=== PATIENT | female | born 1990 | race Caucasian/White ===

== ENCOUNTER 2022-02-18 08:29 | Outpatient (CLI) | payer OTHER, SELFPAY ==
--- NOTE | 2022-02-18 08:45 | CRLHL7_ITS ---
For Patients: As a result of the Cures Act, medical imaging exams and procedure reports are released immediately into your electronic medical record. You may view this report before your referring provider. If you have questions, please contact your health care provider. INDICATION: First trimester scan, establish dates. COMPARISON: None. TECHNIQUE: Real-time don-scale imaging of the pelvis was performed. FINDINGS: Sonographic imaging demonstrates a single living intrauterine gestation. The embryo demonstrates a regular cardiac rate measuring 176 beats per minute. The embryo`s crown-rump length measurement of 3.0 cm corresponds to a gestational age of 9 weeks 6 days with a sonographic due date of 09/17/2022. There is a normal-appearing yolk sac. There are no gross abnormalities noted within the embryo at this early state of development. The gestational sac has a normal appearance. There is a 1.7 x 0.2 x 0.6 cm perigestational hemorrhage. The amount of fluid within the sac appears appropriate for gestational age. The cervix is closed. The myometrium appears normal. The ovaries are of normal size. Corpus luteal cyst right ovary measuring 2.0 x 1.9 x 1.6 cm. There are no suspicious fluid collections noted in the cul-de-sac. IMPRESSION: Single living intrauterine with sonographic gestational age 9 weeks 6 days and sonographic due date of 09/17/2022. Subchorionic hemorrhage measuring 1.7 x 0.2 x 0.6 cm. Dictated by Royce Sahni MD @ 02/18/2022 10:18:21 AM (Electronically Signed)
== END 2022-02-18 08:30 | disposition home or self-care (01) ==
LOC: US 08:32
PROVIDERS: Visit Provider Physician Assistant
DX: Z34.91 Encounter for supervision of normal pregnancy, unspecified, first trimester (principal); O20.9 Hemorrhage in early pregnancy, unspecified; Z3A.09 9 weeks gestation of pregnancy
CPT/HCPCS: 76817

== ENCOUNTER 2022-02-18 09:47 | Outpatient (CLI) | payer OTHER, SELFPAY ==
[2022-02-18 12:27] LABS: Hepatitis B Surface Antigen* Negative (Negative)
[2022-02-18 12:43] LABS: HIV 1/2/P24 Combo Screen* Negative (Negative)
[2022-02-18 12:45] LABS: Hepatitis C Virus Antibody* Negative (Negative)
[2022-02-18 13:26] LABS: Chlamydia DNA Amplified* NOT DETECTED (No Detected); GC DNA Amplified* NOT DETECTED (No Detected)
[2022-02-22 08:16] LABS: Rapid Plasma Reagin (RPR) Non Reactive (Non Reactive)
== END 2022-02-18 09:48 | disposition home or self-care (01) ==
PROVIDERS: Visit Provider Physician Assistant
DX: Z34.90 Encounter for supervision of normal pregnancy, unspecified, unspecified trimester (principal)
CPT/HCPCS: 76817; 86592; 86703; 86762; 86803; 86850; 86900; 86901; 87086; 87186; 87340; 87491; 87591

== ENCOUNTER 2022-03-15 10:31 | Outpatient (CLI) | payer OTHER, SELFPAY | END 2022-03-15 10:32 | disposition home or self-care (01) | LOC: LKVREF 10:33 | PROVIDERS: Visit Provider Physician Assistant | DX: Z34.91 Encounter for supervision of normal pregnancy, unspecified, first trimester (principal); Z3A.13 13 weeks gestation of pregnancy | CPT/HCPCS: 87086; 87186 ==

== ENCOUNTER 2022-04-12 09:57 | Outpatient (CLI) | payer OTHER, SELFPAY | END 2022-04-12 09:58 | disposition home or self-care (01) | LOC: LKVREF 09:59 | PROVIDERS: Visit Provider Physician Assistant | DX: O99.891 Other specified diseases and conditions complicating pregnancy (principal); R82.71 Bacteriuria | CPT/HCPCS: 87086; 87186 ==

== ENCOUNTER 2022-05-03 12:59 | Outpatient (CLI) | payer OTHER, SELFPAY ==
--- NOTE | 2022-05-03 13:00 | CRLHL7_ITS ---
For Patients: As a result of the Century Cures Act, medical imaging exams and procedure reports are released immediately into your electronic medical record. You may view this report before your referring provider. If you have questions, please contact your health care provider. INDICATION: Evaluate anatomy. COMPARISON: 02/18/2022 TECHNIQUE: Real time don scale imaging of the fetus was performed as well as color Doppler analysis of the umbilical vessels. FINDINGS: Sonographic imaging demonstrates a single living intrauterine gestation. Fetus demonstrates a regular cardiac rate of 139 beats per minute. Fetus has a vertex position. The placenta lies anteriorly without evidence of placenta previa. The edge of the placenta is located 5.1 cm from the internal cervical os. Amniotic fluid volume appears normal. Single deepest vertical pocket: 5.2 cm. The cervix is closed and measures 4.0 cm in length. The composite ultrasound gestational age is calculated at 20 weeks 5 days with an estimated sonographic due date of 09/15/2022. The estimated weight is 388 grams which lies at the 91st %. The following biometric measurements were obtained: Biparietal diameter: 4.8 cm/20 weeks 3 days 69th% Head circumference: 18.1 cm/20 weeks 4 days 68th% Abdominal circumference: 16.4 cm/21 weeks 3 days 86th% Femur length: 3.4 cm/20 weeks 3 days 61st% The HC/AC ratio measures: 1.11 range (1.06-1.25) On anatomic survey, there is a normal appearance of the cerebral ventricles, cavum septi pellucidi, cisterna magna and cerebellum. The nose, lips, and facial profile appear normal. The cervical, thoracic and lumbar spine are well visualized and appear normal. There is a normal four-chamber heart view and the left and right ventricular outflow tracts appear normal. The diaphragm appears normal. Debris appears to be present within the stomach, image 45/71. The kidneys and bladder also appear normal. There is a normal three-vessel cord and cord insertion site. The four extremities appear normal. IMPRESSION: Concordance of clinical and sonographic dating. Debris in the stomach. Level 2 ultrasound should be considered. Remainder of the anatomic survey is normal. Dictated by Royce Sahni MD @ 05/03/2022 4:01:20 PM (Electronically Signed)
== END 2022-05-03 13:00 | disposition home or self-care (01) ==
LOC: US 13:00
PROVIDERS: Visit Provider Advanced Practice Midwife
DX: Z34.92 Encounter for supervision of normal pregnancy, unspecified, second trimester (principal); Z3A.20 20 weeks gestation of pregnancy
CPT/HCPCS: 76805

== ENCOUNTER 2022-05-05 14:14 | Outpatient (CLI) | payer OTHER, SELFPAY | END 2022-05-05 14:15 | disposition home or self-care (01) | LOC: US 14:15 | PROVIDERS: Visit Provider Pediatrics Neonatal-Perinatal Medicine | DX: Z34.82 Encounter for supervision of other normal pregnancy, second trimester (principal); Z3A.20 20 weeks gestation of pregnancy | CPT/HCPCS: 76816 ==

== ENCOUNTER 2022-06-30 08:30 | Outpatient (CLI) | payer OTHER, SELFPAY ==
[2022-07-02 01:42] LABS: Rapid Plasma Reagin (RPR) Non Reactive (Non Reactive)
== END 2022-06-30 08:31 | disposition home or self-care (01) ==
LOC: LKVREF 08:30
PROVIDERS: Visit Provider Advanced Practice Midwife
DX: Z34.93 Encounter for supervision of normal pregnancy, unspecified, third trimester (principal); Z3A.28 28 weeks gestation of pregnancy
CPT/HCPCS: 86592

== ENCOUNTER 2022-07-05 10:11 | Outpatient (CLI) | payer OTHER, SELFPAY ==
[2022-07-05 10:19] LABS: Glucose Fasting Check 76 mg/dl (60-115)
[2022-07-05 14:39] LABS: Glucose GTT-Gestational 3 Hr 139 mg/dl (70-140)
[2022-07-05 14:39] LABS: Glucose 1 Hour Gest 179 mg/dl (70-180)
== END 2022-07-05 10:12 | disposition home or self-care (01) ==
LOC: NFLDREF 10:12
PROVIDERS: Visit Provider Advanced Practice Midwife
DX: Z34.83 Encounter for supervision of other normal pregnancy, third trimester (principal); Z3A.30 30 weeks gestation of pregnancy
CPT/HCPCS: 82951; 82952

== ENCOUNTER 2022-08-25 09:12 | Outpatient (CLI) | payer OTHER, SELFPAY ==
--- NOTE | 2022-08-25 09:15 | CRLHL7_ITS ---
For Patients: As a result of the Century Cures Act, medical imaging exams and procedure reports are released immediately into your electronic medical record. You may view this report before your referring provider. If you have questions, please contact your health care provider. INDICATION: DESIRES , GROWTH. COMPARISON: 05/05/2022 TECHNIQUE: Real time don scale imaging of the fetus was performed. FINDINGS: Sonographic imaging demonstrates a single living intrauterine gestation. Fetus demonstrates a regular cardiac rate of 144 beats per minute. Fetus has a vertex position. The placenta lies anteriorly. Amniotic fluid volume appears normal and there is a single deepest vertical pocket: 7.4 cm. The estimated weight is 3473gm which lies at the 95th %. On the prior OB ultrasound exam dated 05/03/2022 the estimated weight was at the 91st%. The biometric indices all lie within normal range. The HC/AC ratio measures range (-). BPD 86th percentile. HC 46th percentile. AC greater than 97th percentile. FL 70th percentile. IMPRESSION: Sonographic gestational age 37 weeks 6 days and sonographic due date 09/09/2022. Sonographic age 11 days ahead of the clinical age. Estimated weight 95th percentile. Abdominal circumference greater than 97th percentile. Dictated by Royce Sahni MD @ 08/25/2022 11:09:49 AM (Electronically Signed)
== END 2022-08-25 09:13 | disposition home or self-care (01) ==
LOC: US 09:13
PROVIDERS: Visit Provider Advanced Practice Midwife
DX: O34.219 Maternal care for unspecified type scar from previous cesarean delivery (principal); Z3A.37 37 weeks gestation of pregnancy
CPT/HCPCS: 76816; 87081; 87653

== ENCOUNTER 2022-09-16 20:12 | Outpatient (CLI) | payer OTHER, SELFPAY ==
[2022-09-16 20:31] VITALS: BP 135/82; PULSE 86
--- NOTE | 2022-09-16 22:41 | PC.OBNST ---
NST Note NST Note Start: 09/16/22 20:21 Freq: ONCE Status: Active Protocol: Document 09/16/22 22:39 ABP (Rec: 09/16/22 22:40 ABP [id number]) NST Note 2 Para (# of births) 1 EDC 09/20/22 Gestational Age In Weeks & Days 39 Weeks & 3 Days Patient Presented with Complaint(s) of Contractions/cramping Reactive Yes Appropriate for Gestational Age Yes MARAIN Chavez, MARIAN Date 09/16/22 Reactive Yes Appropriate for Gestational Age Yes MARIAN Stafford, MARIAN Date 09/16/22 OB NST charge Yes Complete NST Note via Write Note Yes The provider's electronic signature indicates the NST is reactive/appropriate for gestational age. *Note to provider: If an addendum is required, open the patient's chart and click on the note under the Nurse/Allied Health tab.
== END 2022-09-16 22:15 | disposition home or self-care (01) ==
LOC: OB OUT 20:13 → OB 20:16
PROVIDERS: Visit Provider Advanced Practice Midwife
DX: O47.1 False labor at or after 37 completed weeks of gestation (principal); Z3A.39 39 weeks gestation of pregnancy
CPT/HCPCS: 59025; 99213

== ENCOUNTER 2022-09-17 21:34 | Inpatient (IN) | payer OTHER, SELFPAY ==
[2022-09-17] MEDS: LACTATED RINGERS 1000 ML 1,000 ML 999 ML IV (21:55)
[2022-09-17] MEDS: miSOPROStoL 800 MCG/4 TABLET PR (22:40)
[2022-09-17] MEDS: OXYTOCIN 30 unit/500 ML in NS 30 UNIT/500 ML BAG 300 UNIT IVPB (22:46)
[2022-09-17 22:47] VITALS: BP 142/79; PULSE 125
[2022-09-17 23:00] VITALS: BP 133/69; PULSE 110; TEMP 36.8
[2022-09-17] MEDS: METHYLERGONOVINE MALEATE 0.2 MG/ML INJ IM (23:00)
[2022-09-17] MEDS: LIDOCAINE 1 % PF 30 ML INJECTION (23:00)
[2022-09-17] MEDS: fentaNYL 100 MCG/2 ML inj IVP (23:10)
[2022-09-17 23:15] VITALS: BP 88/45; PULSE 100
[2022-09-17 23:30] VITALS: BP 97/53; PULSE 90
--- NOTE | 2022-09-17 23:44 | PM.OBCN1 ---
OB - CN: HPI Date of Consult Date Seen: 09/17/22 Patient: [facility] Patient Consult date: 09/17/22 Requesting Physician: Madhuri Carolina CNM Primary Care Provider: Not a Local Provider Consult Narrative Narrative: The patient is a 32 year old G 2 now P 2-0-0-2 woman who has just had a successful spontaneous vaginal delivery/ at 39 weeks, 4 days gestation. I was called by Madhuri Carolina CNM to evaluate her perineal laceration. History History 2 Elective abortions Para 2 Spontaneous abortions Hx # Term Pregnancies Ectopic pregnancies Hx # Pregnancies Multiple births Number of Living Children 1 Past Pregnancies Del. Date GA/Weeks Outcome Route wt Inf Gender Labor Lgth Anesthesia Location Provider Compli 02/04/20 40 live - full term low transverse 8 lb 10 oz Male Labs OB Labs: Lab Assessment Start: 09/17/22 21:45 Freq: ONCE Status: Active Protocol: PC.OBGBS Activity Type Activity Date Activity User E-sign Co-sign Detail Recorded Client Recorded Date Recorded By Document 09/17/22 23:08 WEBERB [id number] 09/17/22 23:08 PHILL DAMANUEL 09/17/22 23:08 Lab Assessment GBS Negative PFSH PFSH Medical History (Updated 09/17/22 @ 23:49 by Julia Parker MD) No pertinent past medical history ?Z78.9 - Other specified health status (ICD-10) Surgical History History of ?Z98.891 - History of uterine scar from previous surgery (ICD-10) Social History Narrative: . Works in [employer]. Nonsmoker. Smoking Status: Never smoker Little interest or pleasure in doing things: several days Feeling down, depressed, or hopeless: several days Meds Home Medications and Allergies Home Medications Medication Instructions Recorded Confirmed Type docosahexaenoic acid 200 mg mg PO DAILY 02/18/22 09/15/22 History capsule ( DHA) doxylamine succinate 25 mg tablet 25 mg PO QHS PRN 03/15/22 09/15/22 History (Unisom (doxylamine)) Allergies Allergy/AdvReac Type Severity Reaction Status Date / Time No Known Allergies Allergy Unknown Unknown Verified 09/15/22 08:55 OB - H&P: Exam Physical Exam: Vital signs: Pulse BP 90 97/53 L 09/17/22 23:30 09/17/22 23:30 Narrative: Perineal exam reveals a left sulcal laceration that extends in to a second-degree perineal laceration. Rectal exam confirms intact anal sphincter. The perineal body is completely disrupted. She is bleeding rather heavily from the left sulcal laceration, this subsequently found to have small separation of the left anterior labium minora that is bleeding. Procedure note: Repair perineal lacerations The perineum was infiltrated with 10 mL of 1% lidocaine. The left sulcal laceration was 1st repaired in a running, locked fashion with 2 Vicryl. Next, the completely disrupted perineal body was rebuilt with a series of interrupted sutures of first 2-0, then 3-0 Vicryl. The perineal skin is reapproximated with 3-0 Vicryl. After closure of the perineal laceration, bleeding persists. It is then that the bleeding of the anterior left labia minora is noted. This was closed with a single [id number] stitch of 3-0 Vicryl. Hemostasis improves. Throughout the procedure, heavy bleeding was noted. QBL is process. Patient was treated with uterine massage, Pitocin, 800 mcg of rectal misoprostol, and a single dose of Methergine. OB - CN: A/P Assessment and Plan (1) Perineal laceration during delivery: Status: Acute Assessment and Plan: Repaired as detailed above. I believe the majority of the bleeding was from the laceration. (2) hemorrhage: Status: Acute Assessment and Plan: QBL pending. I will be quick to treat with TXA and move to OR for further evaluation should heavy bleeding recur. She is unmedicated and tolerates exam with difficulty.
[2022-09-17 23:54] VITALS: BP 240/158
[2022-09-17 23:59] VITALS: BP 117/72; PULSE 106
[2022-09-18] VITALS (7 sets, daily range): BP systolic 107–124; BP diastolic 60–80; PULSE 76–105; RESP 18–22; TEMP 36.7–37.2; O2SAT 95–98; BMI 32.8
[2022-09-18 00:26] LABS: Basophils Percent Auto 0.2 % (0.0-3.0); Eosinophils Percent Auto 1.1 % (0.0-7.0); Hematocrit 40.6 % (33.0-51.0); Hemoglobin* 13.9 gm/dL (12.0-16.0); Immature Granulocytes Pct Auto 0.4 %; Lymphocytes Percent Auto 22.9 % (20-44); Mean Corpuscular HGB Conc 34 gm/dL (32-36); Mean Corpuscular Hemoglobin 31 pg (26-34); Mean Corpuscular Volume 89 fL (80-100); Monocytes Percent Auto 8.4 % (0.0-11.0); Platelet Count* 177 K/uL (140-440); RDW Coefficient of Variation % 13.6 % (11.5-15.5); Red Blood Count 4.56 m/uL (4.00-5.20); White Blood Count* 12.03 K/uL (4.50-11.00)
[2022-09-18 00:30] LABS: Slide Review Reflex No
--- NOTE | 2022-09-18 00:59 | W.PM.LDBA ---
Subjective History of Present Illness Narrative: Patient is being admitted to Labor and Delivery for IOL for active labor. She is a 32 year old at weeks gestation. Her full history and physical was dictated by Primo Tony CNM on 09/01/22. Please see this for details. 1. History of , patient reported secondary to OP position, failed manual rotation, failed vacuum (uncertain station) Desires Operative report:scanned consent: signed on 08/25/2022 Growth ultrasound at 36 weeks:? EFW at 95%tile and AC >97%tile 2. Asymptomatic bacteriuria, 40-50,000 E coli Elected to treat, cephalexin Treatment of cure UC next visit: UC 03/15/22: <100,000 E coli treated with nitrofurantoin Cathy of cure UC 04/12: +e coli: tx w/ amox-clauv x7days. retest in 4 weeks: 05/03 negative consider prophylaxis w/ macrobid 3. Rubella nonimmune MMR 4. Anatomy scan normal except debris in stomach noted - recommendation for Level II follow up. Follow up still noted debris but not of concern. 5. Failed 1hr GTT 159 3hr GTT: 82, 179, 155, 139 (barely passed 1, 2 & 3 hours) - GDM testing supplies ordered, pt will keep food and blood sugar log for 2 weeks. 1 week of glucose monitoring: all WNL, no need to continue Nutrition referral offered: declined OB - Problem Based A/P Additional Plan (1) Active labor at term: Status: Acute (2) History of section, low transverse: Status: Acute Plan ASSESSMENT:? at 39.4 weeks gestation? GBS negative? Uncomplicated ? Trial of labor after ? ?? PLAN:? 1. Candidate for analgesia of choice. Planning epidural.? 5. Good candidate for TOLAC. Notify OR team and MD. 6. Anticipate ? 7. Expectant management at this time.? 8. Place IV for epidural and continuous monitoring at this time. Delivery/Labor/Induction Plan Plan: expectant management OB Result Labs Blood Type: B (+) positive GBS Status: negative OB Exam Physical Exam Vital signs: Pulse BP 84 118/64 09/18/22 00:45 09/18/22 00:45 Narrative: Vitals per EMR? Psychiatric:? Alert and oriented x3? HEENT:? Normocephalic, atraumatic? Neck:? Supple without adenopathy or thyromegaly? Lungs:? Clear to auscultation bilaterally? Heart:? Regular rate and rhythm, no murmur, rub or gallop? Abdomen:? Soft, nontender, and gravid? Extremities:? No edema or erythema? Pelvic:? SVE: 6cm/bulging bag Membrane status:? intact? presentation:? vertex? FHT:? Moderate Variability.? Positive Accels.? No Decels. Baseline 120.? [place]:? Ctx Q1.5-3min? Detailed Labor and Delivery Exam Patient Gravid: Yes Dilation (cm): 6 Contraction intensity: Strong/Firm Fetus (Single) Amniotic Membrane Status: intact Heart Rate Baseline: 120 Monitor Accelerations: Present Monitor Decelerations: None Care Home Variability: Moderate (6-25)
[2022-09-18] MEDS: lidocaine HCL 2 % JELLY (TOP) STERILE 6 ML TOPICAL (02:45)
[2022-09-18] MEDS: IBUPROFEN 600 MG TABLET PO ×4 (02:52→22:59)
--- NOTE | 2022-09-18 03:22 | W.PM.OBVAGDE ---
OB Procedure Vag Delivery Mother Details Mother Details: The patient is a 32 year-old, 2, Para 2, admitted on 09/17/22 at 39.4Days gestation. Erika present in active labor and progressed quickly to complete. She had requested an epidural but there was not enough time after admission. She felt a strong urge to push and pushed well after some direction. : 2 Para: 2 Weeks Gestation: 39.4 Admission Date: 09/17/22 Additional Details Amniotic Membrane Status: intact Amniotic Membrane Rupture Date: 09/17/22 Amniotic Membrane Rupture Time: 22:10 Amniotic Membrane Fluid Description: Clear Analgesia/Anesthesia Type: None Waterbirth: No Pitcoin: Yes (after delivery only) Intrapartal Events: Excessive Bleeding and Precipitous Labor <3 Hrs Labor Onset: 20:30 Complete: 22:11 Pushin:11 Heart: heart tones during second stage were difficult to trace due to maternal positions and intolerance while pushing. Good variability heard. Decelerations to the 90's heard. Delivery Details Delivery Date: 09/17/22 Delivery Time: 22:39 Gender: Female Infant Viability: Alive; Heart Rate Present Position at Delivery: OA Delivery Details: Delivered over intact perineum via spontaneous vaginal delivery. was placed on maternal abdomen.? Cord was clamped and cut after about a 30 second delay when baby was brought to the warmer for poor tone and lack of crying effort. Baby began to cry and come around shortly after getting to the warmer. Nose and mouth were bulb suctioned.? Infant weight 9lb 7oz. 1 Minute Interval Total Score: 8 5 Minute Interval Total Score: 9 Additional Details Shoulder Dystocia: Yes (50 seconds) Placenta Delivery Time: 22:44 Placental Delivery Description: Spontaneous Delivery repair: Vicryl (repaired by Dr. Parker) Procedure Done: Global Blood Loss: 700 Laceration: Perineal - 2nd Degree (deep perineal, sulcal, and labial lacerations) Episiotomy Description: None Blood Loss Measurement Type: QBL Bakri Used: No Sponge/Need Count Correct: Yes Cord Vessel Description: 3 Vessels, Nuchal Cord (x2), Tight and Delivered through Event Summary Status: Mother and were stable after delivery. Disposition: floor
[2022-09-18] MEDS: DOCUSATE SODIUM 100 MG CAPSULE PO (07:39)
[2022-09-18] MEDS: ACETAMINOPHEN 500 MG TABLET 1000 MG PO ×3 (07:41→20:40)
--- NOTE | 2022-09-18 08:22 | PM.OBPNVD1 ---
OB - PN:Subj Subjective Time Seen by Provider: : Date Seen: 09/18/22 Interval history: Erika is a 32 y.o. who was admitted to L & D for active labor, TOLAC. She had a successful that was followed by a deep sulcus laceration and a PP hemorrhage. Patient comments OB post-: no complaints, pain well controlled, tolerating diet and flatus present status: doing well Narrative: The patient feels ok overall. Increased discomfort and soreness, more than she expected compared to her previous . The pain is somewhat controlled with current medications. Encouraged to have a dose of ibuprofen, which will help with the discomfort and the cramping. Also encouraged to relax in the tub when able. She has no new complaints. She is breast feeding and reports things are going well.? the patient has done well.? Vitals have been stable.? She has remained afebrile.? Has a good appetite, is tolerating a general diet. She has a sears catheter in since she was dizzy multiple times last night when getting up.? She is passing gas and has not had a bowel movement.? She is ambulating and has been resting after being dizzy with ambulation. She was encouraged to eat and stay well hydrated.? Has Small amount of rubra lochia. OB - PN: Obj Exam Physical Exam: Vital signs: Temp Pulse BP 98.2 F 84 118/64 09/17/22 23:00 09/18/22 00:45 09/18/22 00:45 Narrative: GENERAL APPEARANCE: normal affect, alert, no distress MOOD: appropriate HEENT: normocephalic, neck supple, full ROM CHEST: Symmetrical chest wall movement. Normal respiratory effort. Clear to auscultation HEART: regular rate and rhythm ABDOMEN: soft, non-tender. Uterine fundus is firm, at Umbilicus, Midline and is appropriate for the stage of recovery. Bowel sounds present. PERINEUM: Large amount of edema of the perineum, there is a 2nd degree/sulcus laceration that is healing well. EXTREMITIES: normal and no edema OB - PN: Obj Data Labs Labs: Laboratory Results - last 24 hr 09/17/22 21:03 WBC 12.03 H RBC 4.56 Hgb 13.9 Hct 40.6 MCV 89 MCH 31 MCHC 34 RDW Coeff of Nguyen 13.6 Plt Count 177 Neut % (Auto) 67.0 Lymph % (Auto) 22.9 [place] % (Auto) 8.4 Eos % (Auto) 1.1 Baso % (Auto) 0.2 Neut # (Auto) 8.10 H Lymph # (Auto) 2.80 [place] # (Auto) 1.00 H Eos # (Auto) 0.10 Baso # (Auto) 0.00 Blood Type B Positive Antibody Screen NEGATIVE OB - PN: A/P Vaginal Delivery Assessment and Plan (1) Active labor at term: Status: Acute (2) History of section, low transverse: Status: Acute Plan day: 1 Plan: routine care Comments: G 2 P 2 status post successful , complicated by PP hemorrhage and a sulcus laceration. 1. Continue route PP cares 2. . May see if desired 3. Hgb remains pending. Will assess for iron need when back. 4. Sears placed for repeat dizziness with ambulation and perineal/labial edema. Plan to remove this afternoon. Encouraged to eat and hydrate to avoid dizziness. Soak in the tub and ice to help with edema and perineal/labial discomfort. 5. Anticipate discharge home tomorrow.
[2022-09-18 08:23] LABS: Hemoglobin* 12.2 gm/dL (12.0-16.0)
[2022-09-18] MEDS: MEASLES,MUMPS,RUBELLA VACC/PF 1 DOSE INJ 1 EACH SUBCUT (14:08)
--- NOTE | 2022-09-18 14:24 | PC.NURSE ---
Benson removed at 1400 with tip intact
[2022-09-19 01:57] VITALS: BP 108/70; PULSE 87; RESP 18; TEMP 36.7; O2SAT 97
[2022-09-19] MEDS: IBUPROFEN 600 MG TABLET PO ×2 (05:12→12:41)
--- NOTE | 2022-09-19 09:15 | P.DS_ITS ---
DS: Providers Provider Time Seen by Provider: 09:15 Date Seen: 09/19/22 Date of admission: 09/17/22 22:07 Primary care physician: Not a Local Provider Admitting Clinician: Madhuri Carolina CNM Attending Physician on discharge: Madhuri Carolina CNM Date of Discharge: 09/19/22 DS: Diagnosis Discharge Diagnosis (1) Perineal laceration during delivery: Status: Acute (2) , delivered: Status: Acute (3) Lactating mother: Status: Acute (4) care following vaginal delivery: Status: Acute Exam Narrative: Exam Narrative: GENERAL APPEARANCE:? normal affect, alert, no distress? MOOD:? appropriate? CHEST:? clear to auscultation and percussion? HEART:? regular rate and rhythm? ABDOMEN:? soft, non-tender the uterine fundus is 2 cm Below Umbilicus, Midline and is appropriate for the stage of recovery. ? PERINEUM:? mild edema of the perineum, there is a 2nd degree that is healing well.? EXTREMITIES:? normal and no edema? Patient has no complaints? No active bleeding?? Doing well? She is requesting discharge home.? Const: Vital Signs, click to edit/add: Vital Signs - 24 hr 09/18/22 09:20 09/18/22 12:20 09/18/22 16:54 Temperature 99.0 F 98.3 F 98.3 F Pulse Rate [Pulse Oximeter] 90 76 92 Respiratory Rate 22 18 18 Blood Pressure [Le ft Arm] 117/71 Blood Pressure [Ri ght Arm] 118/75 118/80 Pulse Oximetry 95 96 98 Oxygen Delivery Me thod Room Air Room Air Room Air 09/18/22 20:40 09/19/22 01:57 Temperature 98.0 F 98.0 F Pulse Rate [Pulse Oximeter] 94 87 Respiratory Rate 18 18 Blood Pressure [Le ft Arm] 124/78 108/70 Blood Pressure [Ri ght Arm] Pulse Oximetry 97 97 Oxygen Delivery Me thod Room Air Room Air Documenting provider has reviewed patient's vital signs: yes OB - DS: Summary Hospital Course Hospital Course: The patient is a 32 year old G 2 now P 2? admitted on 09/17/22 at 39 Weeks,4 Days gestation for active labor.? She had an uncomplicated delivery.? She delivered a viable female infant.? She is breast feeding and reports things are well.? the patient has done well.?She initially had a lot of pain and discomfort and had a Benson cath in place. That has been removed and she is now doing well. Her pain is well controlled with current medications.? She has no new complaints.? Vitals have been stable. She has remained afebrile. She is voiding without difficulty. She is passing gas and has had a bowel movement. She is ambulating and denies any dizziness. She is planning IUD for control. She is complaining of hemorrhoids that are uncomfortable. she is using tuck pads for these and encouraged her to tub soak for discomfort. Her perineum is bruised with mild swelling but is well approximated. Peripartum Data delivery method: Vaginal Laceration description: Perineal - 2nd Degree Episiotomy description: None complications: none [place] Infant Gender: Female Infant Discharge Plan: Home Status at Discharge Functional status at discharge: independent ambulation Overall status at discharge: patient is progressing back to baseline Time Spent with Patient Time attestation: Total time spent providing and/or coordinating discharge services: Discharge Plan Discharge Disposition: Home, Self-Care Date of Admission: 09/17/22 22:07 Attending Provider on Discharge: Madhuri Carolina Primary Care Provider: Provider,Not a Local Condition: Stable Anticipated Discharge Date/Time: 09/19/22 12:00 Discharge Medications: New docusate sodium 100 mg Capsule 100 mg PO DAILY Qty: 60 0RF ibuprofen 600 mg Tablet 600 mg PO Q6H PRNQty: 60 0RF Continued DHA 200 mg capsule 200 mg PO DAILY Discontinued Unisom (doxylamine) 25 mg tablet 25 mg PO QHS PRN Discharge Orders: Discharge Order (Routine); Ordered 09/19/22 Ordered By: Madhuri Carolina Additional Instructions: Discharge instructions were reviewed with the patient including signs and symptoms of infection and home going medications.? Lifting Restrictions: 10 pounds for 6? weeks? ?? Do not drive while taking narcotic pain meds.? Off Work or School for 6 weeks.? ?? Symptoms to report to doctor:? -Bleeding that saturates more than one pad per hour? -Passing clots larger than the size of a golf ball? -Pain not relieved by prescribed medication? -Fever above 100.4 degrees Fahrenheit? -A foul vaginal odor? -Difficulty in emotions, mood and functions? -Thoughts of hurting yourself and/or ? -Painful, reddened area in your breast? -Any drainage, redness or tenderness in your IV/epidural site? -Severe headache that doesn't improve after taking medications? -Changes in vision, including temporary loss of vision, blurred vision, and/or light sensitivity? -Upper abdominal pain (usually under ribs on the right side)? -Decrease in urination or painful, frequent urinating? -Chest pain? -Shortness of breath? -Tenderness or pain with redness and/swelling in the calf(s) of your leg? ?? Follow Up in clinic in 2 and 6 weeks.? ?? consultation services are available to all mothers and babies for the first year after delivery.? To make an appointment, please call [phone].? Activity Level: Activity as Tolerated Discharge Diet: Regular Follow Up Appointments: Provider,Not a Local [Primary Care Provider] - [facility] [Provider Group] Forms: MyHealth Info Instructions
[2022-09-19 09:35] VITALS: BP 111/75; PULSE 88; RESP 18; TEMP 36.7
[2022-09-19] MEDS: ACETAMINOPHEN 500 MG TABLET 1000 MG PO ×2 (09:37→16:08)
[2022-09-19] MEDS: DOCUSATE SODIUM 100 MG CAPSULE PO (09:37)
== END 2022-09-19 17:35 | disposition home or self-care (01) | DRG 806 ==
LOC: OB OUT 21:34 → OB 21:36
PROVIDERS: Admitting Provider Advanced Practice Midwife; Visit Provider Advanced Practice Midwife
DX: O34.211 Maternal care for low transverse scar from previous cesarean delivery (principal); O72.1 Other immediate postpartum hemorrhage; Z37.0 Single live birth; O87.2 Hemorrhoids in the puerperium; O66.0 Obstructed labor due to shoulder dystocia; O70.1 Second degree perineal laceration during delivery; R42 Dizziness and giddiness; Z3A.39 39 weeks gestation of pregnancy
CPT/HCPCS: 36415; 85018; 85025; 86850; 86900; 86901; 87635; 99213; A9270; J2001; J2210; J3010; J7120

== ENCOUNTER 2023-11-16 07:57 | Outpatient (CLI) | payer OTHER, SELFPAY | END 2023-11-16 07:58 | disposition home or self-care (01) | LOC: NFLDREF 11-20 10:34 | PROVIDERS: Visit Provider Advanced Practice Midwife | DX: Z13.220 Encounter for screening for lipoid disorders (principal) | CPT/HCPCS: 80061 ==

== ENCOUNTER 2025-04-26 07:58 | Outpatient (CLI) | payer OTHER, SELFPAY ==
--- NOTE | 2025-04-26 08:15 | CRLHL7_ITS ---
For Patients: As a result of the Cures Act, medical imaging exams and procedure reports are released immediately into your electronic medical record. You may view this report before your referring provider. If you have questions, please contact your health care provider. OBSTETRICAL ULTRASOUND TRANSABDOMINAL CLINICAL INDICATION: Dating and viability. LMP: 02/15/2025 (unsure) [facility]OPE by LMP: 11/22/2025 Gestational age: 10 weeks 0 days PREVIOUS ULTRASOUND: No TECHNIQUE: Real-time don-scale imaging of the fetus was performed transabdominal. FINDINGS: CRL: 3.9 cm, 10 weeks 6 days; HOPE 11/16/2025 heart rate: 176 BPM Gestational sac: 5.0 cm, appears within normal limits Yolk sac: 5.3 mm, appears within normal limits Right ovary: Within normal limits; 3.6 x 2.1 x 2.9 cm, CL Left ovary: Within normal limits; 3.1 x 1.9 x 2.2 cm COMMENTS: Right ovary corpus luteal cyst; 2.3 x 1.9 x 1.8 cm. Posterior placenta. IMPRESSION: 1. Single living intrauterine measures 10 weeks 6 days with sonographic due date of 11/16/2025. 2. Incidental corpus luteal cyst of right ovary. ROYCE COLLAZO M.D. Diagnostic Radiologist [email or web address] Transcribed: 9:[address]/Dictated by: Royce Collazo MD @ 04/26/2025 9:05:00 AM (Electronically Signed)
== END 2025-04-26 07:59 | disposition home or self-care (01) ==
LOC: US 07:58
PROVIDERS: Visit Provider Midwife
DX: O34.81 Maternal care for other abnormalities of pelvic organs, first trimester (principal); N83.11 Corpus luteum cyst of right ovary; Z3A.10 10 weeks gestation of pregnancy
CPT/HCPCS: 76801

== ENCOUNTER 2025-04-26 09:23 | Outpatient (CLI) | payer OTHER, SELFPAY | END 2025-04-26 09:24 | disposition home or self-care (01) | PROVIDERS: Visit Provider Midwife | DX: Z34.81 Encounter for supervision of other normal pregnancy, first trimester (principal); Z3A.10 10 weeks gestation of pregnancy | CPT/HCPCS: 83020; 83021; 85660; 86592; 86703; 86704; 86706; 86762; 86787; 86803; 86850; 86900; 86901; 87086; 87340 ==